=== PATIENT | female | born 1940 | race Caucasian/White ===

== ENCOUNTER 2017-08-12 17:24 | Emergency (ER) | payer MEDICARE, OTHER ==
[~2017-08-12] VITALS: Ht 170.2 cm; Wt 99.8 kg
--- NOTE | 2017-08-12 17:37 | NUR ---
BIB [facility]ON AMBULATORY TO ER BED 8 C/O LEFT UPPER RIB CAGE PAIN S/P GLF, -KO PT AOX3 RR EVEN AND UNLABORED NO SOB NOTED. NAD NOTED. NO NVD AT THIS TIME. PT NOT DIAPHORETIC. DR. MARIE AT BEDSIDE FOR EVAL.
--- NOTE | 2017-08-12 17:43 | NUR ---
RADIOLOGY AT BEDSIDE FOR XR
[2017-08-12] MEDS ORDERED: HYDROCODONE/APAP 5/325MG 1 EACH TABLET ONE (17:47)
[2017-08-12] MEDS ORDERED: HYDROCODONE/APAP 5/325MG 1 EACH TABLET PO ONE (18:00)
--- NOTE | 2017-08-12 18:47 | NUR ---
CALLED [facility] FOR F/U PENDING XRAY. TO BE READ NEXT.
--- NOTE | 2017-08-12 19:00 | NUR ---
DR. MARIE AT BEDSIDE SPEAKING TO PT REGARDING RESULTS
--- NOTE | 2017-08-12 19:08 | NUR ---
Patient discharged to home in stable condition. Written and verbal after care instructions given. Patient verbalizes understanding of instruction. ambulatory with a steady gait. pt instructed not to drive. pt verbalize understanding.
[2017-08-12 19:10] VITALS: BP 116/76
== END 2017-08-12 19:12 | disposition home or self-care (01) ==
LOC: ER 17:27
DX: S20.302A Unspecified superficial injuries of left front wall of thorax, initial encounter (principal); I10 Essential (primary) hypertension; J44.9 Chronic obstructive pulmonary disease, unspecified; E03.9 Hypothyroidism, unspecified; Z88.0 Allergy status to penicillin; W01.0XXA Fall on same level from slipping, tripping and stumbling without subsequent striking against object, initial encounter; Y93.89 Activity, other specified; Y92.89 Other specified places as the place of occurrence of the external cause; Y99.8 Other external cause status
CPT/HCPCS: 71100; 99284; A4606; Z7610